=== PATIENT | female | born 1940 | race Caucasian/White ===

== ENCOUNTER → 2016-10-27 | Outpatient (CLI) | payer OTHER, MEDICARE | LOC: BMCIMAGING 13:56 | PROVIDERS: ATTEND Internal Medicine | DX: R05 Cough (principal); R42 Dizziness and giddiness; Z85.3 Personal history of malignant neoplasm of breast; Z85.43 Personal history of malignant neoplasm of ovary; R55 Syncope and collapse; Z78.9 Other specified health status | CPT/HCPCS: 71020; G0463 ==

== ENCOUNTER → 2017-09-21 | Outpatient (CLI) | payer OTHER, MEDICARE | LOC: BHFA 10:00 | PROVIDERS: ATTEND Internal Medicine Cardiovascular Disease | DX: R55 Syncope and collapse (principal); I10 Essential (primary) hypertension ==

== ENCOUNTER 2017-10-04 02:39 | Observation (INO) | payer OTHER, MEDICARE ==
[2017-10-04] MEDS ORDERED: NS 1,000 ML IV ONE (02:46)
--- NOTE | 2017-10-04 02:46 | EDPHY ---
H & P Time Seen by Provider: 10/04/17 02:40 HPI/ROS: HPI CHIEF COMPLAINT: Lightheadedness, sweaty, nausea, presyncope HISTORY OF PRESENT ILLNESS: Patient very pleasant 77-year-old female she has a history of breast cancer, ovarian cancer, fallopian tube cancer, and SVT. She presents emergency room after she states she woke up with a coughing spell felt like something was stuck in her throat. She then got up to use the bathroom around 12:30 a.m. Or approximately 2.5 hr ago. She was on the toilet straining very hard to have a bowel movement. She states while on the toilet she felt very lightheaded and sweaty and very nauseous. This came on all the sudden. She had no chest pain or shortness of breath. She stood up off the toilet and felt like she was going to pass out got very lightheaded and nauseous. She laid on the ground for some time and then decided that she was feeling slightly better and enough to come to the emergency room. Upon arrival to the emergency room she is hemodynamically stable no acute distress she does feel nauseous but no chest pain. She states she has not been sick. No recent illness. Denies fever. Denies vomiting or diarrhea. Her main complaint now is nausea. Past Medical History: History of breast cancer, ovarian cancer, SVT Past Surgical History: Total hysterectomy, bilateral mastectomy, Social History: Denies daily use of drugs alcohol tobacco Family History: Noncontributory ROS REVIEW OF SYSTEMS: A comprehensive 10 point review of systems is otherwise negative aside from elements mentioned in the history of present illness. Exam Constitutional appears well nontoxic no acute distress, triage nursing summary reviewed, vital signs reviewed, awake/alert. Eyes normal conjunctivae and sclera, EOMI, PERRLA. HENT normal inspection, atraumatic, moist mucus membranes, no epistaxis, neck supple/ no meningismus, no raccoon eyes. Respiratory clear to auscultation bilaterally, normal breath sounds, no respiratory distress, no wheezing. Cardiovascular rate normal, regular rhythm, no murmur, no edema, distal pulses normal. Gastrointestinal soft, non-tender, no rebound, no guarding, normal bowel sounds, no distension, no pulsatile mass. Genitourinary no CVA tenderness. Musculoskeletal no midline vertebral tenderness, full range of motion, no calf swelling, no tenderness of extremities, no meningismus, good pulses, neurovascularly intact. Skin pink, warm, & dry, no rash, skin atraumatic. Neurologic awake, alert and oriented x 3, AAOx3, moves all 4 extremities equally, motor intact, sensory intact, CN II-XII intact, normal cerebellar, normal vision, normal speech. Psychiatric normal mood/affect. Heme/Lymph/Immune no lymphadenopathy. Differential diagnosis includes but is not limited to: Pre syncope, dehydration , cardiac arrhythmia, ACS, atypical chest pain, pneumothorax, pneumonia, pulmonary embolism, aortic dissection, congestive heart failure, tumor, musculoskeletal pain, esophageal pain, GERD, peptic ulcer disease, pancreatitis Medical Decision Making: Plan for this patient full masticator, IV establishment with EKG, check troponin, D-dimer, gentle IV hydration, basic blood work, UA, and re-evaluate. Zofran for nausea. Re-evaluation: ED x-ray chest one view: Negative for acute cardiopulmonary disease. EKG interpretation by me on record in [employer] system. Impression time of EKG 2:57 a.m. This is sinus rhythm rate of 64 more there is no signs of acute ischemic changes specifically no ST elevation or ST depression no significant T- wave abnormalities. When I compare this to her old EKG dated 12/31/2015 her T- waves seen more prominent and hyperacute. 0414: This patient has a positive D-dimer. Will proceed with CT angiogram of her chest rule out pulmonary embolism. 0424 Patient has a shellfish allergy. She has had CT scans with IV contrast before without any issues. She reports sometimes she does get some Benadryl before her CT scan. She is fine with a CT angiogram. EKG interpretation by me on record in [employer] system. Impression time of EKG 4:33 a.m., this is a repeat EKG, sinus rhythm rate of [address] elevation no significant ST depression no significant T-wave abnormalities. 0503AM: Spoke with Dr. Valerio agrees to observe this patient. Clinically most likely this patient had a vagal response. I have seen her here in the emergency room with heart rates in the 40s. However no symptoms. She has told me in the emergency room she has had a couple twinges of chest discomfort. However EKG remains stable and troponin is negative. She does have a positive D-dimer for which she is going to get a CT angiogram of her chest. After this I think it is reasonable to observe her today in the hospital given that she had such dramatic presentation of diffuse diaphoresis nausea feeling she is going to pass out and a couple small episodes of nondescript chest discomfort. She has agreed for this. CTA chest for pulmonary embolism shows no evidence of pulmonary embolism. Please see full dictation of CT angiogram report by the radiologist Dr. Serna. Source: Patient - Medical/Surgical History Hx Asthma: No Hx Chronic Respiratory Disease: No Hx Diabetes: No Hx Cardiac Disease: Yes Hx Renal Disease: No Hx Cirrhosis: No Hx Alcoholism: No Hx HIV/AIDS: No Hx Splenectomy or Spleen Trauma: No Other PMH: PMH: Bilat Mastectomy, SVT from Chemo, "Arrythmia" - Social History Smoking Status: Never smoked Constitutional: Initial Vital Signs Temperature (C) 36.5 C 10/04/17 03:07 Heart Rate 68 10/04/17 03:07 Respiratory Rate 18 10/04/17 03:07 Blood Pressure 165/80 H 10/04/17 03:07 O2 Sat (%) 97 10/04/17 03:07 O2 Delivery Mode Room Air Allergies/Adverse Reactions: iodine [Iodine] Allergy (Severe, Verified 06/04/09 15:25) Other-Enter Comments vancomycin [Vancomycin] Allergy (Severe, Verified 06/04/09 15:31) Other-Enter Comments Penicillins Allergy (Intermediate, Verified 06/04/09 15:23) Hives Sulfa (Sulfonamide Antibiotics) Allergy (Intermediate, Verified 06/04/09 15:22) Hives COLESLAW Allergy (Severe, Uncoded 06/04/09 15:27) Other-Enter Comments EGGS Allergy (Severe, Uncoded 06/04/09 15:26) Other-Enter Comments ENVIRONMENTAL Allergy (Severe, Uncoded 06/04/09 15:37) Other-Enter Comments SAUERKRAUT Allergy (Severe, Uncoded 06/04/09 15:28) Other-Enter Comments FLU VACCINE Allergy (Uncoded 06/20/09 00:50) Trees, grass, molds Allergy (Uncoded 06/27/09 22:58) Home Medications: Medication Instructions Recorded Herbals/Supplements -Info Only 1 ea PO DAILY 12/31/15 Levothyroxine [Synthroid 75 mcg 75 mcg PO DAILY06 12/31/15 (*)] Multivitamins [Multivitamin (*)] 1 each PO DAILY 12/31/15 Rosuvastatin Calcium [Crestor 5mg] 5 mg PO HS 12/31/15 Valsartan/Hydrochlorothiazide 0.5 each PO DAILY 12/31/15 [Valsartan-Hctz 320-12.5 mg Tab] Aspirin [Aspirin 81mg (*)] 81 mg PO HS 10/04/17 Azelastine [Astelin] 1 sprays EACHNARE BID PRN 10/04/17 Daily-Dophilus 1 each PO BID 10/04/17 Famotidine [Pepcid 20 MG (*)] 20 mg PO BID 10/04/17 Medical Decision Making - Data Points Laboratory Results: Laboratory Results 10/04/17 02:50 10/04/17 02:50 Medications Given: Discontinued Medications Albuterol/Ipratropium (Duoneb) 3 ml IH QID [facility] Stop: 04/02/18 11:59 Last Admin: 10/04/17 13:34 Dose: Not Given Diphenhydramine HCl (Benadryl Injection) 25 mg IVP EDNOW ONE Stop: 10/04/17 04:24 Last Admin: 10/04/17 04:26 Dose: 25 mg Sodium Chloride (Ns) 1,000 mls @ 0 mls/hr IV EDNOW ONE; Wide Open PRN Reason: Protocol Stop: 10/04/17 02:47 Last Admin: 10/04/17 03:02 Dose: 1,000 mls Levothyroxine Sodium (Synthroid) 75 mcg PO DAILY AT 6AM [facility] Stop: 04/02/18 07:14 Last Admin: 10/04/17 07:50 Dose: Not Given Ondansetron HCl (Zofran) 4 mg IVP EDNOW ONE Stop: 10/04/17 03:02 Last Admin: 10/04/17 03:13 Dose: 4 mg Pantoprazole Sodium (Protonix) 40 mg PO DAILY [facility] Stop: 04/02/18 08:59 Last Admin: 10/04/17 08:35 Dose: Not Given Senna/Docusate Sodium (Senokot-S) 1 - 2 tab PO BID SUNDEEP PRN Reason: Protocol Stop: 04/02/18 08:59 Last Admin: 10/04/17 08:34 Dose: Not Given Departure - Departure Disposition: [facility] Inpatient Acute Clinical Impression: Pre-syncope, Lightheaded, Nausea Condition: Fair
--- NOTE | 2017-10-04 02:58 | CPEKG ---
Heart Rate: 64 RR Interval: 938 P-R Interval: 160 QRSD Interval: 82 QT Interval: 432 QTC Interval: 446 P Moffett: 77 QRS Moffett: 48 T Wave Moffett: 35 EKG Severity - NORMAL ECG - EKG Impression: SINUS RHYTHM Electronically Signed By: Thompson An 04-Oct-2017 06:15:49
[2017-10-04 03:01] LABS: PLATELET COUNT 254 10^3/uL (150-400)
[2017-10-04] MEDS ORDERED: ONDANSETRON 4 MG/2 ML VIAL IVP ONE (03:01)
[2017-10-04 03:10] LABS: INR 0.89 (0.83-1.16); PROTIME(PATIENT) 12.3 SEC (12.0-15.0)
[2017-10-04 03:22] LABS: CREATINE KINASE 71 IU/L (0-156)
[2017-10-04] MEDS ORDERED: IOPAMIDOL (ISOVUE 370) 100 ML BTL IV ONE (04:14)
--- NOTE | 2017-10-04 05:10 | CPEKG ---
Heart Rate: 68 RR Interval: 882 P-R Interval: 172 QRSD Interval: 84 QT Interval: 452 QTC Interval: 481 P Tracy: 80 QRS Tracy: 42 T Wave Tracy: 18 EKG Severity - NORMAL ECG - EKG Impression: SINUS RHYTHM Electronically Signed By: Thompson An 04-Oct-2017 06:15:49
[2017-10-04] MEDS ORDERED: ONDANSETRON 4 MG/2 ML VIAL IVP PRN (07:04)
[2017-10-04] MEDS ORDERED: ACETAMINOPHEN 325 MG TAB PO PRN (07:04)
[2017-10-04] MEDS ORDERED: CALCIUM CARBONATE 500 MG CHEWABLE TAB PO PRN (07:11)
[2017-10-04] MEDS ORDERED: MAG HYDROX/AL HYDROX/SIMETH 30 ML UDCUP PO PRN (07:11)
[2017-10-04] MEDS ORDERED: LEVOTHYROXINE 75 MCG TAB PO SCH (07:15)
[2017-10-04] MEDS ORDERED: MAGNESIUM HYDROXIDE 30 ML UDCUP PO PRN (07:54)
[2017-10-04] MEDS ORDERED: BISACODYL 10 MG SUPP PR PRN (07:54)
[2017-10-04] MEDS ORDERED: LACTULOSE 20 GM/30 ML UDCUP PO PRN (07:54)
[2017-10-04] MEDS ORDERED: POLYETHYLENE GLYCOL 3350 17 GM PKT PO PRN (07:54)
--- NOTE | 2017-10-04 08:53 | GHP ---
[f rep st] HISTORY AND PHYSICAL DATE OF ADMISSION: 10/04/2017 Patient provides history, appears reliable. Her EMR was reviewed and case discussed with ED provider . CHIEF COMPLAINT: Presyncope. HISTORY OF PRESENT ILLNESS: This is a very pleasant 77-year-old female with past medical history sig nificant for pulmonary hypertension, remote history of breast cancer, status post mastectomy and chem otherapy, ovarian cancer, status post total abdominal hysterectomy and BSO who presents to the emerge ncy department this morning following a presyncopal episode. Patient reports that she was having a p ersistent cough that kept woke her up in the middle of the night. She also was feeling a little bit of indigestion, reflux, and upset stomach. The patient had a bowel movement prior to going to bed, b ut she still felt she was constipated. She subsequently went to the restroom and reports that she wa s trying to bear down when she suddenly developed diaphoresis, lightheadedness and nearly passed out on the floor. Patient reports that she did have to lie down on the floor and her symptoms subsequent ly improved. The patient denies any chest pain. However, she does report she felt like she was havi ng some palpitations similar to her previous episodes of SVT related to her chemotherapy. This was y ears ago and she has not had any further episodes of SVT, but she felt like this was kind of similar. She actually denies any type of chest pain. She denies any recent fevers, chills. She does report a history of recent URI type symptoms with associated wheezing and shortness of breath. Patient has been noticing increasing dyspnea on exertion without any chest pain. She was actually evaluated out patient at [facility] with echocardiogram and stress testing completed within the past week. I do not have access to review these records at this time, but patient reports that she was diagnosed wit h pulmonary hypertension and had a normal stress test completed at their office. REVIEW OF SYSTEMS: GENERAL: Patient reports that she had been feeling cold all day, but no chills. No fevers. SKIN: No rashes or sores. ENT: Patient does report some chronic congestion and postna fiordaliza drip. EYES: No acute changes in vision or ocular pain. CV: No chest pain, but did note some pal pitations during her initial episode as noted in HPI. RESPIRATORY: Chronic cough for approximately 1 year. Patient with recent URI symptoms including wheezing, dyspnea as noted per HPI. Cough is non productive. GI: Some upset stomach that has since improved. She does continue to have constipation . : No dysuria or hematuria. MUSCULOSKELETAL: Patient is complaining of some neck pain. No oth er myalgias or joint pain complaints. NEURO: Patient with chronic numbness, tingling, neuropathy re lated to her chemotherapy at the distal digits in her upper and lower extremities. She does also rep ort a headache without any acute changes in vision. A little bit of temporal radiation from the top of her head to her left orthodoxy, but no left orthodoxy sensitivity. PSYCH: Patient without any anxiety o r depression. EXTREMITIES: Negative except as noted above. ALLERGIES: Multiple listed including iodine, vancomycin, penicillin, sulfa, coleslaw, eggs, and seas onal allergies, flu vaccine, trees, grass, molds, sauerkraut. HOME MEDICATIONS: As per EMR, not yet reconciled. Famotidine, valsartan HCTZ 320/12.5 mg p.o. daily, Crestor 5 mg p.o. h.s., multivitamin 1 tab p.o. daily, levothyroxine 75 mcg p.o. daily, calcium carb waleska 1000 mg p.o. daily, albuterol HFA 1-2 puffs inhaled q.4 hours p.r.n. PAST MEDICAL HISTORY: 1. Significant for breast cancer, ovarian cancer, both status post resections and chemotherapy, now in remission for several years. History of SVT remotely related to specific chemotherapy agents, pat ient cannot recall name. 2. 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 3. Pulmonary hypertension. PAST SURGICAL HISTORY: Significant for total hysterectomy with BSO, bilateral mastectomy, vertical incision, umbilical and right inguinal hernia repair and a power port placed bilaterally on different occasions. FAMILY HISTORY: Significant for mother and father with hypertension. Father with history of colon c ancer. Maternal grandmother with stomach cancer. Paternal grandmother with a history of breast canc er. SOCIAL HISTORY: Patient lives alone. She does not smoke, drink, or do drugs. CODE STATUS: Full. PHYSICAL EXAMINATION: VITAL SIGNS: Upon arrival to the emergency department, blood pressure is 165/ 80, heart rate 68, respiratory rate 18, O2 saturation 97% on room air with a temperature 36.5. [facility] vitals available: Blood pressure 119/78, heart rate 61, respiratory rate 16, O2 saturation 97% on room air with a temperature 36.3. GENERAL: No acute distress. Very pleasant adult female who is l faith quietly in bed. HEAD: Normocephalic, atraumatic. Patient without any trigger point injections or spasms in her neck. She is complaining of some tenderness to palpation, she points to her orthodoxy , but it is more over the orbital bone on the lateral side. She has no increased touch sensitivity o r withdrawal to exam. EYES: Extraocular muscles are intact. Pupils equal, round, with decreased re activity to light bilaterally but symmetric. No scleral icterus, conjunctival injection. ENT: Muco us membranes appear moist. No pharyngeal erythema or exudates. No nasal discharge. NECK: Supple, trachea midline. Patient without any trigger points identified, but she reports that the palpation d oes seem to improve her symptoms. CV: Regular rate and rhythm, slightly bradycardic into the 50s. No murmurs, rubs, or gallops appreciated. RESPIRATORY: Unlabored breathing. LUNGS: Clear to auscu ltation, but the patient does have prolonged expiratory phase. There are no wheezes or rhonchi. Sli ghtly diminished air movement in the bases bilaterally. Unlabored breathing. ABDOMEN: Positive bow el sounds. Soft, nontender to palpation. No rebound, guarding, or masses appreciated. : No supr apubic tenderness to palpation, no Gutierrez catheter in place. EXTREMITIES: Patient without any cyanos is, clubbing, or edema. Patient with 2+ pedal pulses. NEURO: Grossly nonfocal, no facial drooping. Patient with strength in upper and lower extremities is 5/5 upper and lower extremities. Patient i s able to sit up independently. PSYCH: Patient with multiple questions, but she is very pleasant, co operative and appropriate with her questions. LABORATORY STUDIES: WBC 9.37, H and H 15.0 and 42.4, MCV 91.8, platelet count 254. No bands. PT is 12.3, INR 0.89, PTT 33.4. D-dimer 0.54. Sodium 138, potassium 4.3, chloride 101, CO2 25, anion gap 12, BUN is 21, creatinine 0.9, GFR greater than 60, glucose 93, calcium 10.3, magnesium 2.2, total b ilirubin 0.9, ALT is 47, AST is 35, alkaline phosphatase 114, CK 71, troponin is negative and BTNP is 100. Total protein 7.3, albumin 4.6, lipase is 182. UA specific gravity 1.003, pH is 7.0, trace le uk esterase, otherwise negative. EKG reviewed myself, normal sinus rhythm in the 60s with QTc of 446. No acute ST elevations. There is a prominent T-waves in the anteroseptal leads. Patient with very small nonpathologic appearing Q- waves in the inferolateral leads. Compared to EKG from 01/01/2016 without significant difference exc ept for the prominent T-waves. CTA image report reviewed, chronic or recurrent airway disease without pneumonia, mucus plugging. No PE. Chronic hiatal hernia with findings suggesting associated esophageal dysfunction and/or reflux. Chronic cholelithiasis, incompletely evaluated. Negative for pericardial effusion or pleural effus ion. Two old low thoracic compression fractures that are stable. Small left axillary lymph nodes an d small left hilar lymph nodes. No mediastinal adenopathy. Lymph nodes are stable. Small paratrach eal node is unchanged. Repeat EKG from the ED, the patient arrived to the floor showing normal sinus rhythm in the 60s with a QTc of 481. No acute changes. T-wave prominence noted previously is improved. ASSESSMENT AND PLAN: A very pleasant 77-year-old female who presents to the emergency department fol lowing a presyncopal episode. 1. Presyncope by history, this is quite suspicious for vagal response as patient was sitting on the toilet bearing down and complaining of some constipation. She does have a previous history of suprav entricular tachycardia, but this was always associated with chemotherapy infusions. Telemetry withou t any evidence of a dysrhythmia at this time, but will continue to monitor on telemetry. We will als o check orthostatic blood pressures and repeat a troponin. Low suspicion for cardiac etiology. The patient is reported to have had a full evaluation by Cardiology just 3 weeks ago including a stress t est. She has not had any chest pain, rather she was reporting palpitations during her episode of pre syncope. The patient is currently complaining of a mild headache which has been constant since her o nset of her symptoms. She has no trigger points. She is complaining of a little bit of left-sided t emporal pain, but she has no increased sensitivity. Low suspicion for temporal arteritis or cerebrov ascular accident. Her neurologic exam is within normal limits. Will have patient take some Tylenol. She is also complaining of some neck pain and this could also be contributing to her headache as we ll. K-pad p.r.n. and supportive care. We will request that day provider reassess the patient, but l ow suspicion that she has had any acute neurologic event, but may need to consider CT head for any wo rsening symptoms. 2. Constipation. Bowel regimen will be ordered. 3. Cough related to patient's emphysema noted on imaging. The patient was quite concerned regarding her recent diagnosis of pulmonary hypertension. She has an appointment scheduled with pulmonology o monik in November, but she was never advised that she had evidence of emphysema. I also recommended that patient should follow up with her primary care after discharge and further discuss obtaining an outpatient sleep study as she has had complaints of orthopnea and paroxysmal nocturnal dyspnea as we ll as snoring. 4. Dyspnea, likely related to patient's emphysema. Albuterol nebulizers have been ordered while stalin rosa is in-house. I have recommended that patient follow up with her primary care physician. Juan Antonio r obtaining pre and post vasodilator pulmonary function tests in the outpatient setting prior to her visit with Pulmonology, as it will be several weeks before she is seen and consider appropriate treat ment based on results. 5. Pulmonary hypertension. Further respiratory evaluation as noted above, including sleep study and pulmonary function tests. CHRONIC MEDICAL PROBLEMS: 1. Hypothyroidism. Resume patient's levothyroxine. 2. Neuropathy. Supportive care. 3. Gastroesophageal reflux disease with identifying hiatal hernia on CT. Resume patient's proton pu mp inhibitor. Patient reports she has been taking Prilosec, Tums p.r.n., Maalox p.r.n. 4. Fluid, electrolyte, nutrition. Patient received IV fluid bolus in the emergency department. She does not appear to be dehydrated at this time. Will add on a diet for her and hydrate orally. Elec trolytes monitored and did not require any replacement at this time. 5. Prophylaxis. Sequential compression devices. Holding anticoagulation. Anticipating short hospi dwight stay and early ambulation. DISPOSITION: The patient has been admitted to observation on the telemetry floor with possibility fo r discharge later this afternoon pending repeat studies and patient's ability to ambulate independent ly. CODE STATUS: Full. /[id number]/MODL
[2017-10-04] MEDS ORDERED: SENNOSIDES/DOCUSATE SODIUM TAB PO SCH (09:00)
[2017-10-04] MEDS ORDERED: PANTOPRAZOLE SODIUM 40 MG TAB PO SCH (09:00)
[2017-10-04 11:44] VITALS: BP 115/66; PULSE 57; RESP 10; TEMP 98.1; O2SAT 97
[2017-10-04] MEDS ORDERED: IPRATROPIUM/ALBUTEROL 3 ML DEYVIAL IH SCH (12:00)
[2017-10-04] MEDS ORDERED: AZELASTINE NASAL MDI EACHNARE PRN (12:51)
--- NOTE | 2017-10-04 13:38 | ASMTCASEMG ---
Living Arrangements What is your living Answers: Alone arrangement? Who do you live with? Type Of Residence What kind of residence do Answers: House you live in? Discharge Plan Comments Coordination Status Comments Notes: Pts case discussed in morning rounds. Pt is a 77 y/o female admitted for presyncope. Pt will most likely d/c independent when medically stable. No therapies ordered at this time. CM available for changes. Plan: Independent Date Signed: 10/04/2017 01:37 PM Electronically Signed By:ENEIDA Ocasio
--- NOTE | 2017-10-04 13:39 | GDS ---
[f rep st] DISCHARGE SUMMARY DISCHARGE DIAGNOSES: 1. Vasovagal syncope. 2. Mild pulmonary hypertension. 3. Possible emphysema. 4. Remote history of supraventricular tachycardia. 5. History of ovarian cancer. 6. History of breast cancer. 7. Neuropathy secondary to chemotherapy. HOSPITAL COURSE: Please see admission history and physical by Dr. Mikayla Valerio. The patient present ed with syncope that occurred in the setting of straining at stool, consistent with vasovagal, nonisc hemic EKG, negative CTA, no events on telemetry, negative troponin. She did not require oxygen. She has not had further symptoms. She is discharged home with no further workup. She has a pending pul monary appointment with Dr. Bhavik Narayan for evaluation of potential emphysema. /[id number]/MODL
[2017-10-04] MEDS ORDERED: ASPIRIN 81 MG CHEWABLE TAB PO SCH (21:00)
[2017-10-04] MEDS ORDERED: ROSUVASTATIN CALCIUM 10 MG TAB PO SCH (21:00)
[2017-10-04] MEDS ORDERED: FAMOTIDINE 20 MG TAB PO SCH (21:00)
[2017-10-04] MEDS ORDERED: NON-FORMULARY NEW DRUG (Rosuvastatin Calcium [Crestor 5mg] 5 MG) PO SCH (21:00)
[2017-10-05] MEDS ORDERED: LEVOTHYROXINE 75 MCG TAB PO SCH (06:00)
[2017-10-05] MEDS ORDERED: MULTIVITAMINS 1 EACH TAB PO SCH (09:00)
[2017-10-05] MEDS ORDERED: VALSARTAN PO SCH (09:00)
[2017-10-05] MEDS ORDERED: VALSARTAN 160 MG TAB PO SCH (09:00)
[2017-10-05] MEDS ORDERED: VALSARTAN HCTZ PO SCH (09:00)
[2017-10-05] MEDS ORDERED: HYDROCHLOROTHIAZIDE PO SCH (09:00)
[2017-10-05] MEDS ORDERED: [UNRECOGNIZED DRUG - OTHER] PO SCH (09:00)
[2017-10-05] MEDS ORDERED: Herbals/Supplements -Info Only PO SCH (09:00)
== END 2017-10-04 14:31 | disposition home or self-care (01) ==
LOC: F2W 05:50
PROVIDERS: ADMIT Family Medicine; ATTEND Internal Medicine
DX: R55 Syncope and collapse (principal); I27.20 Pulmonary hypertension, unspecified; R05 Cough; R06.00 Dyspnea, unspecified; E86.9 Volume depletion, unspecified; K59.00 Constipation, unspecified; G62.0 Drug-induced polyneuropathy; T45.1X5S Adverse effect of antineoplastic and immunosuppressive drugs, sequela; E03.9 Hypothyroidism, unspecified; K21.9 Gastro-esophageal reflux disease without esophagitis; Z85.3 Personal history of malignant neoplasm of breast; Z85.43 Personal history of malignant neoplasm of ovary; Z90.710 Acquired absence of both cervix and uterus; Z90.722 Acquired absence of ovaries, bilateral; Z90.13 Acquired absence of bilateral breasts and nipples; Z88.0 Allergy status to penicillin; Z91.013 Allergy to seafood
CPT/HCPCS: 71045; 71275; 93005; 96361; 96374; 96375; 99285; G0378; J1200; J2405; Q9967

== ENCOUNTER → 2017-11-02 | Outpatient (CLI) | payer OTHER, MEDICARE | LOC: BHFA 11:00 | PROVIDERS: ATTEND Internal Medicine Cardiovascular Disease | DX: I27.20 Pulmonary hypertension, unspecified (principal) ==

== ENCOUNTER → 2018-07-11 | Outpatient (CLI) | payer OTHER, MEDICARE | LOC: FIMAGING 12:16 | PROVIDERS: ATTEND Internal Medicine | DX: R91.8 Other nonspecific abnormal finding of lung field (principal) ==

== ENCOUNTER → 2018-07-26 | Outpatient (CLI) | payer OTHER, MEDICARE | LOC: FIMAGING 13:10 | PROVIDERS: ATTEND Internal Medicine Rheumatology | DX: M81.0 Age-related osteoporosis without current pathological fracture (principal); E07.9 Disorder of thyroid, unspecified; Z85.3 Personal history of malignant neoplasm of breast ==

== ENCOUNTER → 2018-11-06 | Outpatient (CLI) | payer OTHER, MEDICARE | LOC: FIMAGING 18:48 | PROVIDERS: ATTEND Physical Medicine & Rehabilitation Pain Medicine | DX: M54.6 Pain in thoracic spine (principal); M54.16 Radiculopathy, lumbar region; M48.061 Spinal stenosis, lumbar region without neurogenic claudication ==